=== PATIENT | male | born 1950 | race Caucasian/White ===

== ENCOUNTER 2019-10-29 08:15 | Observation (INO) | payer MEDICARE, SELFPAY ==
[2019-10-29] VITALS (13 sets, daily range): BP systolic 90–116; BP diastolic 45–72; PULSE 58–110; RESP 14–22; TEMP 36.3–36.7; O2SAT 97–99; BMI 28.2
--- NOTE | ~2019-10-29 | CT_ITS ---
EXAMINATION: CT abdomen pelvis w con DATE: 10/29/2019 09:16 INDICATION: Abdominal pain TECHNIQUE: Computed tomography (CT) of the abdomen and pelvis was performed with 100 mL Omnipaque-350 intravenous contrast. Automated exposure control and iterative reconstruction technique were employe d. The dose-length product was 455.42 mGy-cm. COMPARISON: 06/18/2013 FINDINGS: Emphysema. Dependent atelectasis in the right lower lobe. Heart size is normal. Atherosclerotic coron judie artery calcifications with likely coronary artery stenting. No pericardial or pleural effusion. A few scattered hepatic and splenic calcifications consistent with old granulomatous disease. Common b ile duct mildly dilated to 7-8 mm in maximal diameter. No obstructing stones or masses identified. Ga llbladder is normal and there is no intrahepatic biliary ductal dilation. Punctate calcification at t he body of the otherwise normal pancreas which may represent sequela of chronic pancreatitis. Bilater al adrenal glands and left kidney are normal. 8 mm wedge-shaped region of decreased attenuation/enhan cement at the upper pole of the left kidney. Moderate amount of colonic stool. Fatty infiltration of the colonic wall likely related to patient body habitus. Small bowel and appendix are normal. Partial ly decompressed bladder is normal. Small fat-containing left inguinal hernia. No free intraperitoneal gas or fluid. No pathologically enlarged abdominal or pelvic lymphadenopathy. There is calcified ath erosclerosis of the aorta and many of the other arteries. Small intramuscular lipoma at the proximal left rectus femoris muscle. Bones are unremarkable. IMPRESSION: 1. Mild dilation of the common bile duct to 7-8 mm with no obstructing lesion or intrahepatic biliary ductal dilation. Correlate with liver function tests and could consider further evaluation with ultr asound or MRCP. 2. Small fat-containing left inguinal hernia. 3. Nonspecific 8 mm wedge-shaped region of decreased attenuation/enhancement at the upper pole of the left kidney which is likely too small to definitively characterize. Configuration favors scarring re lated to prior infarct or infection over renal cyst or less likely neoplasm. Reviewed, dictated and finalized at location A. ANICAL MAINTENANCE INSTRUCTOR IMPRESSION: 1. Mild dilation of the common bile duct to 7-8 mm with no obstructing lesion o r intrahepatic biliary ductal dilation. Correlate with liver function tests and could consider further evaluation with ultrasound or MRCP. 2. Small fat-containing left inguinal hernia. 3. Nonspecific 8 mm wedge-shaped region of decreased attenuation/enhancement at the upper pole of the left kidney which is likely too small to definitively ch aracterize. Configuration favors scarring related to prior infarct or infection over renal cyst or less likely neoplasm.
--- NOTE | ~2019-10-29 | XR_ITS ---
EXAMINATION: XR chest 1V portable DATE: 10/29/2019 08:45 INDICATION: Chest pain. Hypotension. TECHNIQUE: A single frontal view of the chest was obtained. COMPARISON: Chest 2 views 10/12/2019, chest CT 09/04/2019 FINDINGS: There are lucencies and interstitial opacities in the lungs, consistent with emphysema. Aditya cified left lung nodules and calcified left hilar and mediastinal lymph nodes are consistent with old granulomatous disease. No pleural effusion or pneumothorax. The heart size is normal. IMPRESSION: 1. Emphysema. Reviewed, dictated and finalized at location A. HOME SALES CONSULTANT IMPRESSION: 1. Emphysema.
--- NOTE | ~2019-10-29 | CT_ITS ---
EXAMINATION: CTA chest PE protocol DATE: 10/29/2019 18:52 INDICATION: Shortness of breath, chest and back pain TECHNIQUE: Computed tomography angiography (CTA) of the chest was performed with 100 mL Omnipaque-350 intravenous contrast timed to evaluate the pulmonary arteries. Coronal maximum intensity projection 3D-reconstructions were created by the technologist. The dose-length product (DLP) was 369.04 mGy-cm. Automated exposure control and iterative reconstruction technique were employed. COMPARISON: 09/04/2019 FINDINGS: The pulmonary arteries are well-opacified. No pulmonary embolism is identified. Calcified c oronary artery atherosclerosis is noted. The heart size is normal. There is severe emphysema. There i s mild dependent atelectasis. No pleural effusion or pneumothorax is identified. There is mild thorac ic spondylosis. Contrast from earlier CT examination partially opacifies the urinary tract. Hyperatte nuating material within the gallbladder is most consistent with vicarious excretion of contrast. IMPRESSION: 1. No pulmonary embolism. 2. Mild atelectasis. Reviewed, dictated and finalized at location A. E CATCHER
--- NOTE | 2019-10-29 08:20 | ED.CHESTPAIN ---
HPI - Chest Pain General Chief Complaint: Chest Pain Stated Complaint: CP Time Seen by Provider: 10/29/19 08:20 Source: patient, RN notes reviewed and old records reviewed Mode of arrival: EMS Limitations: no limitations History of Present Illness HPI narrative: Pt is a 69 y/o male with a Hx of ND, who presents to the ED via EMS with c/o substernal chest pain starting roughly 15 minutes ago. He notes that his pain has begun to radiate into his upper back. Pt describes the pain in his chest as a tightness. He currently reports nausea and SOB accompanying his pain. According to the nurse, the pt received 324 mg ASA and 2 mg NTG while in route to the ED. Pt states that he is currently on 2 L of home O2. According to old records, the pt received a cardiac catheterization on 08/17/18 at [facility], which showed no significant coronary artery stenosis. MD complaint: chest pain Onset (ago): minute(s) (15) Pain location: substernal Pain radiation: back (upper back) Quality: tightness Associated symptoms: nausea and dyspnea Treatment prior to arrival: aspirin and nitroglycerin Related Data Home Medications Medication Instructions Recorded Confirmed Nexium 10/29/19 albuterol sulfate 10/29/19 atorvastatin 10/29/19 clopidogrel 10/29/19 diltiazem HCl 10/29/19 magnesium oxide 10/29/19 nitroglycerin mg 10/29/19 rivaroxaban [Xarelto] mg 10/29/19 sotalol 10/29/19 Allergies Allergy/AdvReac Type Severity Reaction Status Date / Time Penicillins Allergy Unknown Unknown Verified 10/29/19 08:59 tetracycline Allergy Unknown Unknown Verified 10/29/19 08:59 Review of Systems Review of Systems: All systems reviewed & are unremarkable except as noted in HPI and below Cardiovascular: Cardiovascular: Reports chest pain (substernal chest pain radiating into upper back) Respiratory: Respiratory: Reports dyspnea Gastrointestinal: Gastrointestinal: Reports nausea PMFSH Past Medical History Medical History Myocardial infarction Surgical History Surgical History Hx of cardiac catheterization on 08/17/18 with no significant coronary artery stenosis Family History Family History (Updated 10/19/18 @ 08:49 by DOCTOR UNKNOWN) Father Family history of cardiovascular disease Family history of lung cancer Mother Family history of chronic obstructive pulmonary disease Family history of aortic aneurysm Social History Social History Smoking status: Former smoker Smoking end date: 09/19/18 Gender identity (if verbalized by the patient): Male Exam Narrative: Exam Narrative: APPEARANCE: No acute distress, nontoxic, resting in bed HEENT: Normocephalic, atraumatic, OMM RESPIRATORY: No respiratory distress, clear to auscultation bilaterally with no rhonchi wheezing or rales CARDIOVASCULAR: RRR s murmur ABDOMINAL: Soft, nondistended, tender palpation epigastric and right upper quadrant left upper quadrant, no tenderness in right lower quadrant left lower quadrant, no rebound or guarding MUSCULOSKELETAl: Moves all extremities. No clubbing, cyanosis or edema. NEURO: Awake and alert. Following commands, speech normal, no focal deficits SKIN:: Warm, dry. Normal Color PSYCHIATRIC: Normal affect/mood Course Course Emergency Course: Reviewed old records including patient with catheterization at [facility] 2018 with no stenosis at that time Patient did receive 3 nitroglycerin as well as took his Cardizem prior to arrival Patient states pain is resolved at this time Discussed with patient and family results of workup and diagnosis. Discussed need for admission. Patient and family understand and agree to current treatment plan Consultations Consultation #1: Discussed case with hospitalist, Dr. García. Accepts admission. Date: 10/29/19 Time: 10:54 Vital Signs Vit
[2019-10-29 08:40] LABS: Basophils Percent Auto 0.3 % (0.2-1.2); Eosinophils Absolute Auto 0.2 K/mm3 (0-0.3); Eosinophils Percent Auto 1.5 % (0-4.4); Hematocrit 36.1 % (42.0-52.0); Hemoglobin 12.1 g/dL (14.0-18.0); Immature Granulocyte Absolute 0.09 K/mm3 (0.00-0.031); Immature Granulocyte Percent A 0.8 % (0-0.5); Lymphocytes Absolute Auto 1.88 K/mm3 (0.9-3.2); Lymphocytes Percent Auto 17.3 % (18.3-44.2); Mean Corpuscular HGB Conc 33.5 g/dl (32-36); Mean Corpuscular Hemoglobin 30.6 pg (26-34); Mean Corpuscular Volume 91.2 fl (80-100); Mean Platelet Volume 9.4 fl (7.4-10.4); Monocytes Percent Auto 8.8 % (2.6-8.5); Neutrophils Absolute Auto 7.8 K/mm3 (1.3-6.7); Neutrophils Percent Auto 71.3 % (45.5-73.1); Platelet Count Result 167 k/mm3 (150-375); Red Blood Count 3.96 M/mm3 (4.6-6.20); Red Cell Distribution Width 14.6 % (11.5-14.5); White Blood Count 10.9 K/mm3 (4.5-10.0)
[2019-10-29] MEDS: LACTATED RINGERS 1,000 ML 999 ML IV CONT ×2 (08:44→10:03)
[2019-10-29 08:50] LABS: INR 1.3; Prothrombin Time 15.9 Seconds (11.1-14.7)
[2019-10-29 08:54] LABS: Alanine Aminotransferase 28 U/L (4-50); Albumin Level 3.4 g/dL (3.5-5.1); Alkaline Phosphatase 56 U/L (38-126); Aspartate Amino Transferase 33 U/L (17-59); Bilirubin,Total 1.2 mg/dL (0.2-1.3); Blood Urea Nitrogen 14 mg/dL (9-20); Calcium 8.1 mg/dL (8.4-10.2); Carbon Dioxide 28 mmol/L (22-30); Chloride 97 mmol/L (98-107); Estimated Glomerular Filt Rate > 60; Glucose 140 mg/dL (75-110); Lipase 81 U/L (23-300); Potassium 4.2 mmol/L (3.4-5.0); Sodium 135 mmol/L (137-145)
[2019-10-29 09:04] LABS: Troponin I < 0.012 ng/mL (0.000-0.034)
--- NOTE | 2019-10-29 10:09 | ECG_ITS ---
Measurements Intervals [place] Rate: 55 P: 71 MT: 125 QRS: 2 QRSD: 82 T: 74 QT: 440 QTc: 423 Interpretive Statements SINUS BRADYCARDIA LOW QRS VOLTAGE IN PRECORDIAL LEADS BORDERLINE T WAVE ABNORMALITY- LATERAL LEADS BASELINE ARTIFACT- I, III, AVR BORDERLINE ECG Electronically Signed On 10-29-2019 12:55:48 WHARF HAND by Song Alston D.O.
[2019-10-29 10:43] LABS: Add Urine Microscopic? YES; Appearance Urine Clear (Clear); Bilirubin Urine Negative (Negative); Blood Urine 1+ (Negative); Color Urine Straw (Yellow); Glucose Urine UA Negative (Negative); Ketones Urine Negative (Negative); Leukocyte Esterase Ur Negative LEU/UL (Negative); Nitrate Urine Negative (Negative); Protein Urine Negative (Negative); Squamous Epithelial Cell Urine Rare /hpf (Few); Urobilinogen Urine Negative mg/dL (<2.0); WBC Urine 0-3 /hpf
[2019-10-29 10:44] LABS: Specific Grav Ur 1.056 (1.001-1.035)
--- NOTE | 2019-10-29 11:53 | ADMGEN ---
This patient, Smith Padilla Jr., was admitted to 3 [facility] Surg Room 309-01. Patient/family oriented to hospital policies and general routines including ID bracelet, bed and alarms, visiting hours, pain management, procedures, bathroom and other care routines, personal items, smoking policy, room service/diet, and visiting hours. Valuables list has been completed. Information on how to activate the Rapid Response Team has been discussed. Patient/Family are encouraged to report perceived risks to care and to ask questions if they do not understand what they are told or what they should do.
[2019-10-29] MEDS: LACTATED RINGERS 1,000 ML 80 ML IV CONT (12:37)
[2019-10-29 14:44] LABS: Troponin I < 0.012 ng/mL (0.000-0.034)
--- NOTE | 2019-10-29 16:43 | PM.IMHP ---
H&P: HPI History of Present Illness Chief complaint: abd pain Narrative: Smith Padilla Jr. is a 69 year old male Review of Systems Review of Systems: All systems reviewed & are unremarkable except as noted in HPI and below PMFSH Past Medical History Medical History (Updated 10/29/19 @ 18:04 by Ata García MD) COPD (chronic obstructive pulmonary disease) Hyperlipidemia Hypertension, essential Myocardial infarction 2009, 2014, 07/2018 Paroxysmal atrial fibrillation Surgical History Surgical History (Updated 10/29/19 @ 18:04 by Ata García MD) Hx of cardiac catheterization on 08/17/18 stents open, also 2009 for stents, and 2014 for stents Stented coronary artery Social History Social History (Updated 10/29/19 @ 17:41 by Ata García MD) Smoking status: Former smoker Smoking end date: 09/19/18 Alcohol intake: never Substance use: never Living arrangements: with family Additional living arrangements comments: Resides with spouse. 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 Gender identity (if verbalized by the patient): Male Meds Home Medications and Allergies Home Medications Medication Instructions Recorded Confirmed Type albuterol sulfate 2.5 mg INHALATION QID 10/29/19 10/29/19 History atorvastatin 40 mg PO DAILY 10/29/19 10/29/19 History clopidogrel 75 mg PO DAILY 10/29/19 10/29/19 History diltiazem HCl 60 mg TID 10/29/19 10/29/19 History magnesium oxide 400 mg PO QAM 10/29/19 10/29/19 History nitroglycerin 0.4 mg SUBLINGUAL DIRECTED PRN 10/29/19 10/29/19 History rivaroxaban [Xarelto] 20 mg PO DAILY 10/29/19 10/29/19 History sotalol 80 mg PO BID 10/29/19 10/29/19 History Allergies Allergy/AdvReac Type Severity Reaction Status Date / Time Penicillins Allergy Unknown Unknown Verified 10/29/19 08:59 tetracycline Allergy Unknown Swelling Verified 10/29/19 11:55 of Lip/Tongue/Throat Amiordarone Allergy Other Uncoded 10/29/19 11:55 Vital Signs Vital Signs - 24 hr 10/29/19 08:17 10/29/19 08:36 10/29/19 08:54 Temperature 97.4 F L Pulse Rate 64 58 L Respiratory Rate 22 H Blood Pressure 90/45 L Pulse Oximetry 97 98 10/29/19 09:39 10/29/19 11:26 10/29/19 11:37 Temperature Pulse Rate 71 65 67 Respiratory Rate 16 16 14 Blood Pressure 102/59 L 112/69 116/72 Pulse Oximetry 99 98 99 10/29/19 11:50 10/29/19 12:50 10/29/19 14:00 Temperature 97.6 F 97.9 F Pulse Rate 68 70 62 Respiratory Rate 18 18 Blood Pressure 112/66 114/67 Pulse Oximetry 99 97 Exam Narrative: Exam Narrative: HEENT: EOMI, PERRL, pharyngeal mucosa pink and intact NECK: No JVD, adenopathy, or thyromegaly CHEST: Coarse BS. Normal effort. HEART: NL S1/S2, regular, no murmur ABDOMEN: BS+, soft, nontender, no mass, no bruits EXTREMITIES: No cyanosis, edema, or clubbing. DP 2+ bilaterally. NEUROLOGIC: CN intact and symmetric to inspection. MUSCULOSKELETAL: Tone and strength symmetric. PSYCH: Alert. Oriented to person, place, and time. H&P: Results Labs Labs: Short CBC 10/29/19 Range/Units 08:33 WBC 10.9 H (4.5-10.0) K/mm3 Hgb 12.1 L (14.0-18.0) g/dL Hct 36.1 L (42.0-52.0) % Plt Count 167 (150-375) k/mm3 BMP 10/29/19 08:33 Sodium 135 L Potassium 4.2 Chloride 97 L Carbon Dioxide 28 BUN 14 Creatinine 0.90 Glucose 140 H Calcium 8.1 L Cardiac Enzymes 10/29/19 10/29/19 Range/Units 08:33 13:33 Troponin I < 0.012 < 0.012 (0.000-0.034) ng/mL Liver Function 10/29/19 Range/Units 08:33 Total Bilirubin 1.2 (0.2-1.3) mg/dL AST 33 (17-59) U/L ALT 28 (4-50) U/L Alkaline Phosphatase 56 (38-126) U/L Albumin 3.4 L (3.5-5.1) g/dL Urine 10/29/19 Range/Units 10:34 Urine Color Straw (Yellow) Urine Appearance Clear (Clear) Urine pH 7.0 (5.0-9.0) Ur Specific Perry 1.056 H (1.001-1.035) Urine Protein
[2019-10-29 17:42] LABS: Troponin I < 0.012 ng/mL (0.000-0.034)
[2019-10-29] MEDS: DILTIAZEM HCL 60 MG TABLET BY MOUTH (21:24)
[2019-10-29] MEDS: SOTALOL HCL 80 MG TABLET PO (21:24)
[2019-10-29] MEDS: RIVAROXABAN 20 MG TABLET PO (21:32)
[2019-10-29] MEDS: PANTOPRAZOLE 40 MG TABLET PO (21:33)
--- NOTE | 2019-10-29 22:40 | PCRCNOTE ---
Window of time for administration has passed. See next scheduled administration.
[2019-10-30] VITALS (9 sets, daily range): BP systolic 112; BP diastolic 77; PULSE 60–99; RESP 16–20; TEMP 36.6; O2SAT 97–100
[2019-10-30] MEDS: LACTATED RINGERS 1,000 ML 80 ML IV CONT (01:12)
[2019-10-30] MEDS: ALBUTEROL SULFATE NEB 2.5 MG/3 ML INH INHALATION ×2 (01:44→08:55)
[2019-10-30] MEDS: DILTIAZEM HCL 60 MG TABLET BY MOUTH (05:44)
[2019-10-30 06:36] LABS: Basophils Percent Auto 0.2 % (0.2-1.2); Eosinophils Absolute Auto 0.2 K/mm3 (0-0.3); Eosinophils Percent Auto 2.9 % (0-4.4); Hematocrit 36.5 % (42.0-52.0); Hemoglobin 11.8 g/dL (14.0-18.0); Immature Granulocyte Absolute 0.02 K/mm3 (0.00-0.031); Immature Granulocyte Percent A 0.4 % (0-0.5); Lymphocytes Absolute Auto 1.07 K/mm3 (0.9-3.2); Lymphocytes Percent Auto 19.2 % (18.3-44.2); Mean Corpuscular HGB Conc 32.3 g/dl (32-36); Mean Corpuscular Hemoglobin 29.8 pg (26-34); Mean Corpuscular Volume 92.2 fl (80-100); Mean Platelet Volume 9.4 fl (7.4-10.4); Monocytes Absolute Auto 0.6 K/mm3 (0.1-0.6); Monocytes Percent Auto 10.4 % (2.6-8.5); Neutrophils Absolute Auto 3.7 K/mm3 (1.3-6.7); Neutrophils Percent Auto 66.9 % (45.5-73.1); Platelet Count Result 131 k/mm3 (150-375); Red Blood Count 3.96 M/mm3 (4.6-6.20); Red Cell Distribution Width 14.9 % (11.5-14.5); White Blood Count 5.6 K/mm3 (4.5-10.0)
[2019-10-30 06:55] LABS: Alanine Aminotransferase 90 U/L (4-50); Albumin Level 3.3 g/dL (3.5-5.1); Alkaline Phosphatase 66 U/L (38-126); Aspartate Amino Transferase 53 U/L (17-59); Bilirubin,Total 0.6 mg/dL (0.2-1.3); Blood Urea Nitrogen 8 mg/dL (9-20); Calcium 8.4 mg/dL (8.4-10.2); Carbon Dioxide 31 mmol/L (22-30); Chloride 101 mmol/L (98-107); Estimated CRCL calculation 61 ml/min; Estimated Glomerular Filt Rate > 60; Glucose 99 mg/dL (75-110); Potassium 4.4 mmol/L (3.4-5.0); Sodium 138 mmol/L (137-145)
--- NOTE | 2019-10-30 08:33 | ECG_ITS ---
Measurements Intervals [place] Rate: 62 P: 64 UT: 130 QRS: 56 QRSD: 82 T: 81 QT: 408 QTc: 415 Interpretive Statements SINUS RHYTHM BORDERLINE ST-T WAVE ABNORMALITY- LATERAL LEADS BASELINE ARTIFACT- I, AVR, AVL, AVF BORDERLINE ECG Electronically Signed On 10-30-2019 10:21:12 FOAM GUN OPERATOR by Song Alston D.O.
[2019-10-30] MEDS: ATORVASTATIN 40 MG TABLET PO (09:21)
[2019-10-30] MEDS: CLOPIDOGREL BISULFATE 75 MG TABLET PO (09:21)
[2019-10-30] MEDS: PANTOPRAZOLE 40 MG TABLET PO (09:21)
[2019-10-30] MEDS: MAGNESIUM OXIDE 400 MG TABLET PO (09:21)
--- NOTE | 2019-10-30 16:57 | PCRCNOTE ---
Pt. D/C prior to home o2 eval
--- NOTE | 2019-11-02 16:42 | P.DS_ITS ---
DS: Diagnosis Admitting Diagnosis Admitting Diagnosis: Chest pain, unspecified Discharge Diagnosis (1) Chest pain: Qualifiers: Chest pain type: unspecified Qualified Code(s): R07.9 - Chest pain, unspecified Code(s): R07.9 - Chest pain, unspecified Status: Acute Assessment and Plan: * Pain was clearly different than his angina and is EKG and troponin levels are unremarkable * Vascular risk cause such as aortic dissection is of concern * GI cause such as esophageal spasm or reflux is a possibility * Peptic ulcer disease seems much less likely * Given his slightly dilated common bile duct he certainly might have passed a gallstone * Pulmonary embolus seems unlikely given his anticoagulation * Muscular skeletal pain would be unlikely to produce the visceral response with shortness of breath and sweats * CTA chest * Empiric pantoprazole * Observe overnight on telemetry (2) Hypertension, essential: Code(s): I10 - Essential (primary) hypertension Status: Acute Assessment and Plan: * Continue diltiazem (3) COPD (chronic obstructive pulmonary disease): Qualifiers: COPD type: unspecified COPD Qualified Code(s): J44.9 - Chronic obstructive pulmonary disease, unspecified Code(s): J44.9 - Chronic obstructive pulmonary disease, unspecified Status: Acute Assessment and Plan: * Continue home regimen * Wean oxygen as possible (4) Paroxysmal atrial fibrillation: Code(s): I48.0 - Paroxysmal atrial fibrillation Status: Acute Assessment and Plan: * Continue diltiazem and rivaroxaban (5) Anemia, unspecified: Qualifiers: Anemia type: unspecified type Qualified Code(s): D64.9 - Anemia, unspecified Code(s): D64.9 - Anemia, unspecified Status: Acute Assessment and Plan: * Check stool for blood as he is anticoagulated * Check iron, B12, folate DS: Summary Time Spent with Patient Time attestation: Total time spent providing and/or coordinating discharge services: Discharge Plan Discharge Attending physician on discharge: Adam Pang Consulting providers: Trung Matthews ; Pramod Holcomb ; Song Alston ; Robert Ty V. Discharging Clinician: Adam Pang Patient Disposition: Home, Self-Care Activity: as tolerated Diet: low sodium and low cholesterol Patient Instructions: Using Oxygen at Home (DC), COPD (Chronic Obstructive Pulmonary Disease) (DC) Stand Alone Forms: General Discharge Information Follow-up/Referrals: UNKNOWN,DOCTOR [Non-Staff] - (see stonemason apprentice) Discharge Medications: Continued atorvastatin 40 mg tablet 40 mg PO DAILY RF: 0 albuterol sulfate 2.5 mg /3 mL (0.083 %) solution for nebulization 2.5 mg inhalation QID RF: 0 sotalol 80 mg tablet 80 mg PO BID RF: 0 clopidogrel 75 mg tablet 75 mg PO DAILY RF: 0 magnesium oxide 400 mg (241.3 mg magnesium) tablet 400 mg PO QAM RF: 0 nitroglycerin 0.4 mg tablet, sublingual 0.4 mg sublingual DIRECTED PRN (Reason: Chest Pain) RF: 0 diltiazem HCl 60 mg tablet 60 mg TID RF: 0 Xarelto 20 mg tablet 20 mg PO DAILY RF: 0 Date of admission: 10/29/19 10:59 Primary Care Provider: Luis Fernando Admitting Provider: Ata García Discharge Date/Time: 10/30/19 11:45 Attending physician on admission: Adam Pang Condition: Stable
--- NOTE | 2019-11-02 16:44 | PM.DS ---
DS: Diagnosis Admitting Diagnosis Admitting Diagnosis: Chest pain, unspecified Discharge Diagnosis (1) Chest pain: Qualifiers: Chest pain type: unspecified Qualified Code(s): R07.9 - Chest pain, unspecified Code(s): R07.9 - Chest pain, unspecified Status: Acute Assessment and Plan: Pain was clearly different than his angina and is EKG and troponin levels x2 are unremarkable GI cause such as esophageal spasm or reflux is a possibility Peptic ulcer disease seems much less likely Given his slightly dilated common bile duct he certainly might have passed a gallstone CTA chest no pulmonary emboli Empiric pantoprazole Observed overnight on telemetry and pain subsided. Will follow-up with his home delivery driver within the next 2-3 days (2) Hypertension, essential: Code(s): I10 - Essential (primary) hypertension Status: Acute Assessment and Plan: Continue diltiazem blood pressure well controlled (3) COPD (chronic obstructive pulmonary disease): Qualifiers: COPD type: unspecified COPD Qualified Code(s): J44.9 - Chronic obstructive pulmonary disease, unspecified Code(s): J44.9 - Chronic obstructive pulmonary disease, unspecified Status: Acute Assessment and Plan: Continue home regimen with home O2 (4) Paroxysmal atrial fibrillation: Code(s): I48.0 - Paroxysmal atrial fibrillation Status: Acute Assessment and Plan: Continue diltiazem and rivaroxaban, sinus rhythm while here we continue the sotalol and patient felt this was causing most of his symptomatology. Encouraging to follow-up with his home delivery driver DS: Summary Hospital Course Hospital Course: 69-year-old white male with history of coronary disease and paroxysmal atrial fibrillation admitted with lower chest and upper abdominal pain that he thought was different from usual angina. Serial enzymes were negative and LFTs remain normal. He was discharged to follow-up with his home delivery driver within the next 2-3 days. CTA revealed no pulmonary emboli Time Spent with Patient Time attestation: Total time spent providing and/or coordinating discharge services: 35 minutes Exam Narrative: Exam Narrative: Condition on discharge Blood pressure 112/76 pulse 72 and regular afebrile Lungs clear CV regular rate rhythm Abdomen is soft nontender Extremities without edema Discharge Plan Discharge Attending physician on discharge: Adam Pang Consulting providers: Trung Matthews ; Pramod Holcomb ; Song Alston ; Robert Ty V. Discharging Clinician: Adam Pang Patient Disposition: Home, Self-Care Activity: as tolerated Diet: low sodium and low cholesterol Patient Instructions: Using Oxygen at Home (DC), COPD (Chronic Obstructive Pulmonary Disease) (DC) Stand Alone Forms: General Discharge Information Follow-up/Referrals: UNKNOWN,DOCTOR [Non-Staff] - (see home delivery driver) Discharge Medications: Continued atorvastatin 40 mg tablet 40 mg PO DAILY RF: 0 albuterol sulfate 2.5 mg /3 mL (0.083 %) solution for nebulization 2.5 mg inhalation QID RF: 0 sotalol 80 mg tablet 80 mg PO BID RF: 0 clopidogrel 75 mg tablet 75 mg PO DAILY RF: 0 magnesium oxide 400 mg (241.3 mg magnesium) tablet 400 mg PO QAM RF: 0 nitroglycerin 0.4 mg tablet, sublingual 0.4 mg sublingual DIRECTED PRN (Reason: Chest Pain) RF: 0 diltiazem HCl 60 mg tablet 60 mg TID RF: 0 Xarelto 20 mg tablet 20 mg PO DAILY RF: 0 Date of admission: 10/29/19 10:59 Primary Care Provider: Luis Fernando Admitting Provider: Ata García Discharge Date/Time: 10/30/19 11:45 Attending physician on admission: Adam Pang Condition: Stable
== END 2019-10-30 11:45 | disposition home or self-care (01) ==
LOC: ANHED 11:04 → ANH3MEDSUR 11:36
PROVIDERS: Admitting Provider Internal Medicine; Emergency Provider Emergency Medicine; PCP Family Medicine Adolescent Medicine; Visit Provider Internal Medicine
DX: R07.9 Chest pain, unspecified (principal); R10.13 Epigastric pain; I10 Essential (primary) hypertension; J44.9 Chronic obstructive pulmonary disease, unspecified; I48.0 Paroxysmal atrial fibrillation; I25.10 Atherosclerotic heart disease of native coronary artery without angina pectoris; I25.2 Old myocardial infarction; E78.5 Hyperlipidemia, unspecified; D64.9 Anemia, unspecified; Z87.891 Personal history of nicotine dependence; Z95.5 Presence of coronary angioplasty implant and graft
CPT/HCPCS: 36415; 71045; 71275; 74177; 80053; 81001; 83690; 84484; 85025; 85610; 85730; 93005; 94640; 96361; 96374; 99285; A9270; G0378; J0131; J7120; Q9967

== ENCOUNTER 2022-11-30 14:38 | Inpatient (IN) | payer MEDICARE, SELFPAY ==
[2022-11-30] VITALS (20 sets, daily range): BP systolic 124–155; BP diastolic 76–88; PULSE 74–105; RESP 12–18; TEMP 36.6–36.7; O2SAT 92–100; BMI 29.7
--- NOTE | ~2022-11-30 | XR_ITS ---
EXAMINATION: XR chest 2V DATE: 11/30/2022 14:51 INDICATION: Chest pain and shortness of breath. TECHNIQUE: Frontal and lateral views of the chest were obtained. COMPARISON: Chest one view 10/29/2019, chest CT 10/29/2019 FINDINGS: The lungs are hyperexpanded with lucencies, consistent with emphysema. A calcified left linnette g nodule and calcified mediastinal lymph nodes are consistent with old granulomatous disease. There i s mild atelectasis at the lung bases. No pleural effusion or pneumothorax. The heart size is normal. IMPRESSION: 1. Emphysema. 2. Mild atelectasis at the lung bases. Reviewed, dictated and finalized at location A.
--- NOTE | 2022-11-30 14:40 | ECG_ITS ---
Measurements Intervals [place] Rate: 97 P: 81 UT: 124 QRS: 59 QRSD: 90 T: 91 QT: 343 QTc: 437 Interpretive Statements SINUS RHYTHM ATRIAL PREMATURE COMPLEX NONSPECIFIC ST & T-WAVE ABNORMALITY- DIFFUSE LEADS BASELINE ARTIFACT- I, II, III, AVR, AVL, AVF, V4-V6 BORDERLINE ECG COMPARED TO ECG 10/30/2019 09:56:03 NO SIGNIFICANT CHANGES Electronically Signed On 11-30-2022 21:43:30 CDT by Song Alston D.O.
[2022-11-30 15:17] LABS: Basophils Percent Auto 0.2 % (0.2-1.2); Eosinophils Absolute Auto 0.1 K/mm3 (0-0.3); Eosinophils Percent Auto 0.5 % (0-4.4); Hematocrit 37.1 % (42.0-52.0); Hemoglobin 11.6 g/dL (14.0-18.0); Immature Granulocyte Absolute 0.26 K/mm3 (0.00-0.031); Immature Granulocyte Percent A 1.5 % (0-0.5); Lymphocytes Absolute Auto 2.38 K/mm3 (0.9-3.2); Lymphocytes Percent Auto 13.5 % (18.3-44.2); Mean Corpuscular HGB Conc 31.3 g/dl (32-36); Mean Corpuscular Hemoglobin 23.2 pg (26-34); Mean Corpuscular Volume 74.1 fl (80-100); Mean Platelet Volume 9.4 fl (7.4-10.4); Monocytes Absolute Auto 1.1 K/mm3 (0.1-0.6); Monocytes Percent Auto 6.3 % (2.6-8.5); Neutrophils Absolute Auto 13.7 K/mm3 (1.3-6.7); Platelet Count Result 298 k/mm3 (150-375); Red Blood Count 5.01 M/mm3 (4.6-6.20); Red Cell Distribution Width 17.2 % (11.5-14.5); White Blood Count 17.6 K/mm3 (4.5-10.0)
[2022-11-30 15:25] LABS: Alanine Aminotransferase 24 U/L (6-50); Albumin Level 4.6 g/dL (3.5-5.1); Alkaline Phosphatase 85 U/L (38-126); Anion Gap 10 mmol/L (8-16); Anisocytosis 1+ (NORMAL); Aspartate Amino Transferase 24 U/L (17-59); Bilirubin,Total 1.5 mg/dL (0.2-1.3); Blood Urea Nitrogen 15 mg/dL (9-20); Calcium 8.6 mg/dL (8.4-10.2); Carbon Dioxide 24 mmol/L (22-30); Chloride 97 mmol/L (98-107); Estimated CRCL calculation 43 ml/min; Estimated Glomerular Filt Rate 60; Glucose 122 mg/dL (65-110); INR 3.4; Lipase 38 U/L (23-300); Ovalocytes 1+ (NORMAL); Platelet Estimate Adequate (Adequate); Potassium 3.8 mmol/L (3.4-5.0); Prothrombin Time 33.1 Seconds (11.1-14.7); Schistocytes None Seen (NORMAL); Sodium 131 mmol/L (137-145)
[2022-11-30 15:26] LABS: Partial Thromboplastin Time 57.2 SECONDS (22.3-36.8)
[2022-11-30 15:35] LABS: Troponin I < 0.012 ng/mL (0.000-0.034)
[2022-11-30 19:07] LABS: Troponin I < 0.012 ng/mL (0.000-0.034)
--- NOTE | 2022-11-30 20:19 | ED.CHESTPAIN ---
HPI - Chest Pain General Chief Complaint: Chest Pain Stated Complaint: chest pain x several days Time Seen by Provider: 11/30/22 19:45 History of Present Illness HPI narrative: Patient is a 72-year-old male with a history of COPD, A-fib on anticoagulation, CAD, hypertension presenting with chest pain. Patient states that for the last several days he has had worsening chest tightness. States that he has also had a very productive cough. States he has been coughing up brown stuff. States that he does feel more short of breath than normal. States he uses oxygen as needed at home. He denies headache, numbness or weakness, lightheadedness, abdominal pain, nausea or vomiting, diarrhea, leg swelling. Related Data Home Medications Medication Instructions Recorded Confirmed atorvastatin 40 mg tablet 40 mg PO DAILY 10/25/19 12/01/22 clopidogrel 75 mg tablet 75 mg PO DAILY 10/29/19 12/01/22 diltiazem HCl 60 mg tablet 60 mg PO Q8H 10/29/19 12/01/22 magnesium oxide 400 mg (241.3 mg 400 mg PO QHS 10/29/19 12/01/22 magnesium) tablet nitroglycerin 0.4 mg sublingual 0.4 mg sublingual DIRECTED PRN 10/29/19 12/01/22 tablet Chest Pain rivaroxaban 20 mg tablet (Xarelto) 20 mg PO DAILY 10/29/19 12/01/22 esomeprazole magnesium 20 mg 20 mg PO DAILY 12/01/22 12/01/22 capsule,delayed release (Nexium) furosemide 20 mg PO Q12H 12/01/22 12/01/22 Allergies Allergy/AdvReac Type Severity Reaction Status Date / Time NSAIDS (Non-Steroidal Allergy Severe SWELLING Verified 11/30/22 14:38 Anti-Inflamma OF TONGUE,ANAPHALACTIC REACTION Penicillins Allergy Unknown Unknown Verified 11/30/22 14:38 tetracycline Allergy Unknown Swelling Verified 11/30/22 14:38 of Lip/Tongue/Throat amiodarone Allergy Verified 12/01/22 09:32 Review of Systems Review of Systems: All systems reviewed & are unremarkable except as noted in HPI and below PMFSH Past Medical History Medical History COPD (chronic obstructive pulmonary disease) History of heart attack Hyperlipidemia Hypertension, essential Myocardial infarction 2009, 2014, 07/2018 Paroxysmal atrial fibrillation Surgical History Surgical History Hx of cardiac catheterization on 08/17/18 stents open, also 2009 for stents, and 2014 for stents Stented coronary artery Family History Family History Father Family history of cardiovascular disease Family history of lung cancer Mother Family history of chronic obstructive pulmonary disease Family history of aortic aneurysm Social History Social History Smoking status: Former smoker Smoking end date: 09/19/18 Alcohol intake: never Substance use: never Lack of Transportation: No Lack of Food: Never True Current Housing: I Have Housing Concerned About Future Housing: No Difficulty Paying Gas/Electric Bills: No Difficulty Paying for Meds: No Currently Unemployed: No Education: High School Diploma/GED Difficulty w/ Childcare or Family Care: No Living arrangements: with family Additional living arrangements comments: Resides with spouse. 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 EYES: PERRLA and EOMI. ENT: Nares clear, no rhinorrhea or epistaxis. Mucous membranes moist. NECK: Supple. CHEST: Breath sounds diminished bilaterally with significant wheezing HEART: Regular rate and rhythm. No murmur heard ABDOMEN: Soft, nontender, nondistended EXTREMITIES: Normal range of motion. No edema. SK
[2022-11-30] MEDS: methylPREDNISolone SOD SUCC 125 MG VIAL IV PUSH (20:37)
[2022-11-30 21:15] LABS: NT Pro B Type Natriuretic Pept 95 pg/mL (19.9-100)
[2022-11-30 21:28] LABS: Influenza A QL RT-PCR Negative (Negative); Influenza B QL RT-PCR Negative (Negative); RSV RNA, RT-PCR Negative (Negative); SARS-CoV-2 RNA PCR Negative
[2022-11-30 21:39] LABS: Troponin I < 0.012 ng/mL (0.000-0.034)
[2022-11-30] MEDS: ALBUTEROL SULFATE NEB 2.5 MG/3 ML INH 5 MG INHALATION (21:40)
[2022-11-30] MEDS: IPRATROPIUM BR 0.02% INH SOLN 0.5 MG/2.5 ML VIAL INHALATION (21:40)
--- NOTE | 2022-11-30 21:51 | PM.IMHP ---
H&P: HPI History of Present Illness Date/Time: 11/30/22 21:51 Chief Complaint: Shortness of breath Narrative: This is a 72-year-old male with past medical history significant for COPD/emphysema, atrial fibrillation, rate controlled and anticoagulated, coronary artery disease, tobacco dependence, hypertension, dyslipidemia. Patient presents to the emergency room after having 3 days of shortness of breath, chills, fevers, cough productive of yellowish to [place] sputum copious amount, night sweats, muscle aches, patient is usually on supplemental oxygen by nasal cannula 2-3 L at home. Preliminary workup was significant for patient tested negative for influenza type A, influenza type B, RSV and COVID-19 a chest x-ray was reported as: IMPRESSION: 1. Emphysema. 2. Mild atelectasis at the lung bases. Review of Systems Review of Systems: Shortness of breath, cough productive of yellow to valencia sputum, muscle aches and pains, generalized malaise, night sweats, chills. Constitutional: Constitutional: Reports body ache(s), Reports chills, Reports fatigue, Reports fever(s), Reports lethargy, Reports malaise, Reports night sweats and Reports weakness Eyes: Eyes: Denies change in vision ENT: Denies dysphagia, Denies nasal congestion, Denies nasal discharge, Denies nasal obstruction and Denies odynophagia Cardiovascular: Cardiovascular: Denies chest pain, Denies leg edema, Denies radiating jaw, neck or arm pain and Denies palpitations Respiratory: Respiratory: Reports change in phlegm color, Reports chest congestion, Reports cough, Reports excessive phlegm production, Reports dyspnea, Reports dyspnea on exertion and Reports wheezing Gastrointestinal: Gastrointestinal: Denies abdominal pain, Denies dyspepsia, Denies heartburn, Denies diarrhea, Denies nausea and Denies vomiting Genitourinary: Genitourinary: Denies dysuria Musculoskeletal: Musculoskeletal: Reports myalgias Integumentary/Breasts: Skin/Breast: Denies rash Neurologic: Denies focal weakness and Denies Sensory deficit (Neuro) Psychiatric: Psychiatric: Reports no additional psychiatric complaints and Reports as per HPI Endocrine: Endocrine: Denies cold intolerance, Denies flushing, Denies heat intolerance, Denies polyphagia, Denies polydipsia and Denies palpitations Hematologic/Lymphatic: Hematologic/Lymphatic: Reports no additional hematologic/lymphatic complaints and Reports as per HPI Allergic/Immunologic: Allergic/Immunologic: Reports no additional allergic/immunologic complaints and Reports as per HPI [facility] Past Medical History Medical History (Updated 12/01/22 @ 02:24 by Luci Nicholson MD) COPD (chronic obstructive pulmonary disease) History of heart attack Hyperlipidemia Hypertension, essential Myocardial infarction 2009, 2014, 07/2018 Paroxysmal atrial fibrillation Surgical History Surgical History (System 11/06/19 @ 08:38 by Juhi Knowles) Hx of cardiac catheterization on 08/17/18 stents open, also 2009 for stents, and 2014 for stents Stented coronary artery Family History Family History (System 11/06/19 @ 08:38 by Juhi Knowles) Father Family history of cardiovascular disease Family history of lung cancer Mother Family history of chronic obstructive pulmonary disease Family history of aortic aneurysm Social History Social History (System 11/06/19 @ 08:38 by Juhi Knowles) Smoking status: Former smoker Smoking end date: 09/19/18 Alcohol intake: never Substance use: never Lack of Transportation: No Lack of Food: Never True Current Housing: I Have Housing Concerned About Future Housing: No Difficulty Paying Gas/Electric Bills: No Difficulty Paying for Meds: No Currently Unemployed: No Education: High School Diploma/GED Difficulty w/ Childcare or Family Care: No Living arrangements: with family Additional living arrangements comments: Resides with spouse. Occupation/Education: retir
--- NOTE | 2022-11-30 23:26 | ADMGEN ---
This patient, Smith Padilla Jr., was admitted to 3 [facility] Surg Room 316-02. Patient/family oriented to hospital policies and general routines including ID bracelet, bed and alarms, visiting hours, pain management, procedures, bathroom and other care routines, personal items, smoking policy, room service/diet, and visiting hours. Information on how to activate the Rapid Response Team has been discussed. Patient/Family are encouraged to report perceived risks to care and to ask questions if they do not understand what they are told or what they should do.
[2022-12-01] VITALS (16 sets, daily range): BP systolic 133–146; BP diastolic 68–78; PULSE 80–110; RESP 15–20; TEMP 36.1–36.7; O2SAT 91–97; BMI 29.7
[2022-12-01] MEDS: cefTRIAXone 2 GM/NS 100 ML 2 GM/100 ML BAG IVPB ×2 (02:28→21:40)
[2022-12-01] MEDS: dilTIAZem HCL 60 MG TABLET BY MOUTH ×3 (05:21→21:28)
--- NOTE | 2022-12-01 06:32 | PCRCNOTE ---
Window of time for administration has passed. See next scheduled administration.
[2022-12-01] MEDS: ALBUTEROL SULFATE NEB 2.5 MG/3 ML INH INHALATION (08:46)
[2022-12-01] MEDS: IPRATROPIUM BR 0.02% INH SOLN 0.5 MG/2.5 ML VIAL INHALATION ×4 (08:46→20:00)
[2022-12-01] MEDS: ATORVASTATIN 40 MG TABLET PO (09:23)
[2022-12-01] MEDS: CLOPIDOGREL BISULFATE 75 MG TABLET PO (09:23)
[2022-12-01] MEDS: RIVAROXABAN 20 MG TABLET PO (10:30)
--- NOTE | 2022-12-01 11:11 | PM.IMPN ---
Progress Note: A&P Assessment and Plan (1) COPD exacerbation: Code(s): J44.1 - Chronic obstructive pulmonary disease with (acute) exacerbation Status: Acute Assessment and Plan: C/o SOB, increased sputum with color change and chills. Breathing treatments q.4 hours. Albuterol changed to xopenex Q4 hours due to h/o afib Continue empiric antibiotics- Azithromcyin 500 mg IV Q24 hours and IV Rocephin 1 gram Q24 Mucinex 600 mg BID Solu-medrol 40 mg IV Q4 hours Supportive care Resume trelegy when ready for discharge. (2) Chronic respiratory failure with hypoxia: Code(s): J96.11 - Chronic respiratory failure with hypoxia Status: Chronic Assessment and Plan: Continue supplemental oxygen by nasal cannula Try and keep oxygen saturation at 94% Titrate O2 as needed. He reports wearing 2-3L with activity and sleep. He does not usually wear O2 at rest. (3) Paroxysmal atrial fibrillation: Code(s): I48.0 - Paroxysmal atrial fibrillation Status: Chronic Assessment and Plan: Chronic, continue diltiazem and anticoagulation (4) Coronary artery disease: Qualifiers: Coronary Disease-Associated Artery/Lesion type: [place] artery [place] vs. transplanted heart: [place] heart Associated angina: without angina Qualified Code(s): I25.10 - Atherosclerotic heart disease of [place] coronary artery without angina pectoris Code(s): I25.10 - Atherosclerotic heart disease of [place] coronary artery without angina pectoris Status: Chronic Assessment and Plan: Chest pain-free. h/o cardiac stents. Continue plavix and statin. (5) Tobacco abuse: Code(s): Z72.0 - Tobacco use Status: Chronic Assessment and Plan: Nicotine patches as needed (6) Hypertension, essential: Code(s): I10 - Essential (primary) hypertension Status: Chronic Assessment and Plan: Continue home meds and adjust as needed. Plan CODE STATUS: Full code Disposition: from home. Diet: Heart healthy Antibiotic: day 1 Time Spent With Patient Time with patient: 15 - 25 minutes Subjective Date/time seen: 12/01/22 11:11 He feels like is breathing is improving, however, he is still short of breath with exertion. He is coughing up thick yellow/brown sputum. No fevers, chills, chest pain or palpitations. Review of Systems Review of Systems: All systems reviewed & are unremarkable except as noted in HPI and below Exam Narrative: General:?nontoxic-appearing, dangling, in no distress. HEENT:??Normocephalic. Pupils equal and round. Sclera anicteric.? Oral mucosa moist.? Neck:??No JVD Respiratory:?Respirations are nonlabored. Lung sounds diminished throughout, expiratory wheezing?in all moore. Cardiovascular:?normal S1-S2 regular rate and rhythm without murmurs, gallops or rubs. Gastrointestinal:??Abdomen is soft , protuberant and nondistended with positive bowel sounds. No guarding. Skin:??Warm and dry.? Fair complexion. Extremities:??No cyanosis, clubbing, or edema. Grossly normal ROM. Neurological:??Alert and oriented x3. No gross focal deficits. Psychiatric:??Pleasant and cooperative with normal mood and affect. Objective Data Vital Signs Vital Signs: Vital Signs - 24 hr 11/30/22 14:45 11/30/22 18:55 11/30/22 18:57 Temperature 97.8 F 98.1 F Pulse Rate 96 88 83 Respiratory Rate 12 18 Blood Pressure 124/85 155/76 H Pulse Oximetry 97 97 Oxygen Delivery Nasal Cannula Oxygen Flow Rate 2 Fraction of Inspired Oxygen 11/30/22 21:42 11/30/22 19:02 11/30/22 19:18 Temperature Pulse Rate 74 90 Respiratory Rate 13 16 Blood Pressure Pulse Oximetry 100 96 98 Oxygen Delivery Nasal Cannula Oxygen Flow Rate 2.0 Fraction of Inspired Oxygen 11/30/22 19:32 11/30/22 19:49 11/30/22 20:00 Temperature Pulse Rate 80 78 79 Respiratory Rate 15 15 17 Blood Pressure Pulse Oximetry 99 97 98 Oxygen Delivery Oxyge
[2022-12-01] MEDS: FLUTICASONE/UMECLIDIN/VILANTER 100-62.5-25 MCG ELLIPTA 1 PUFF INHALATION (12:22)
[2022-12-01] MEDS: guaiFENesin 12 HR 600 MG TABCR PO (21:27)
[2022-12-01] MEDS: methylPREDNISolone SOD SUCC 40 MG VIAL IV PUSH (21:28)
[2022-12-01] MEDS: MAGNESIUM OXIDE 400 MG TABLET PO (21:28)
[2022-12-02] VITALS (21 sets, daily range): BP systolic 109–136; BP diastolic 64–79; PULSE 67–106; RESP 16–20; TEMP 36.2–37.2; O2SAT 93–98
[2022-12-02] MEDS: IPRATROPIUM BR 0.02% INH SOLN 0.5 MG/2.5 ML VIAL INHALATION ×6 (00:20→23:50)
[2022-12-02] MEDS: methylPREDNISolone SOD SUCC 40 MG VIAL IV PUSH ×2 (05:39→21:14)
[2022-12-02] MEDS: dilTIAZem HCL 60 MG TABLET BY MOUTH ×3 (05:39→21:15)
[2022-12-02 07:23] LABS: Hematocrit 34.8 % (42.0-52.0); Hemoglobin 10.5 g/dL (14.0-18.0); Mean Corpuscular HGB Conc 30.2 g/dl (32-36); Mean Corpuscular Hemoglobin 23.3 pg (26-34); Mean Corpuscular Volume 77.2 fl (80-100); Mean Platelet Volume 9.8 fl (7.4-10.4); Platelet Count Result 325 k/mm3 (150-375); Red Blood Count 4.51 M/mm3 (4.6-6.20); Red Cell Distribution Width 17.1 % (11.5-14.5); White Blood Count 15.7 K/mm3 (4.5-10.0)
[2022-12-02 07:50] LABS: Anion Gap 8 mmol/L (8-16); Blood Urea Nitrogen 17 mg/dL (9-20); CRP 6.1 mg/dL (<1.0); Calcium 8.7 mg/dL (8.4-10.2); Carbon Dioxide 26 mmol/L (22-30); Chloride 101 mmol/L (98-107); Estimated CRCL calculation 66 ml/min; Estimated Glomerular Filt Rate > 60; Glucose 207 mg/dL (65-110); Potassium 4.3 mmol/L (3.4-5.0); Sodium 135 mmol/L (137-145)
[2022-12-02 08:03] LABS: Procalcitonin 0.1 ng/mL
[2022-12-02] MEDS: PANTOPRAZOLE 40 MG TABLET PO (08:03)
[2022-12-02] MEDS: guaiFENesin 12 HR 600 MG TABCR PO ×2 (08:03→21:14)
[2022-12-02] MEDS: RIVAROXABAN 20 MG TABLET PO (08:03)
[2022-12-02] MEDS: ATORVASTATIN 40 MG TABLET PO (08:03)
[2022-12-02] MEDS: CLOPIDOGREL BISULFATE 75 MG TABLET PO (08:03)
[2022-12-02] MEDS: FLUTICASONE/UMECLIDIN/VILANTER 100-62.5-25 MCG ELLIPTA 1 PUFF INHALATION (08:32)
--- NOTE | 2022-12-02 11:24 | PCCCNOTE ---
On 12/02/22, the student, [Tran Shah], provided care and completed [facility] documentation on this patient. I have reviewed the student's documentation and agree with the findings.
--- NOTE | 2022-12-02 16:24 | PM.IMPN ---
Progress Note: A&P Assessment and Plan (1) COPD exacerbation: Code(s): J44.1 - Chronic obstructive pulmonary disease with (acute) exacerbation Status: Acute Assessment and Plan: C/o SOB, increased sputum with color change and chills. Breathing treatments q.4 hours. Albuterol changed to xopenex Q4 hours due to h/o afib Continue empiric antibiotics- Azithromcyin 500 mg IV Q24 hours and IV Rocephin 1 gram Q24 Mucinex 600 mg BID Solu-medrol 40 mg IV decelerated to q.12 hours Plan for home O2 evaluation tomorrow. Supportive care Resume trelegy when ready for discharge. (2) Chronic respiratory failure with hypoxia: Code(s): J96.11 - Chronic respiratory failure with hypoxia Status: Chronic Assessment and Plan: Continue supplemental oxygen by nasal cannula Try and keep oxygen saturation at 94% Titrate O2 as needed. He reports wearing 2-3L with activity and sleep. He does not usually wear O2 at rest. (3) Paroxysmal atrial fibrillation: Code(s): I48.0 - Paroxysmal atrial fibrillation Status: Chronic Assessment and Plan: Chronic, continue diltiazem and anticoagulation (4) Coronary artery disease: Qualifiers: Coronary Disease-Associated Artery/Lesion type: [place] artery [place] vs. transplanted heart: [place] heart Associated angina: without angina Qualified Code(s): I25.10 - Atherosclerotic heart disease of [place] coronary artery without angina pectoris Code(s): I25.10 - Atherosclerotic heart disease of [place] coronary artery without angina pectoris Status: Chronic Assessment and Plan: Chest pain-free. h/o cardiac stents. Continue plavix and statin. (5) Tobacco abuse: Code(s): Z72.0 - Tobacco use Status: Chronic Assessment and Plan: Nicotine patches as needed (6) Hypertension, essential: Code(s): I10 - Essential (primary) hypertension Status: Chronic Assessment and Plan: Continue home meds and adjust as needed. Plan CODE STATUS: Full code Disposition: from home. Diet: Heart healthy Antibiotic: day 1 Subjective Date/time seen: 12/02/22 16:24 Interval history: patient very eager to go home although he is still on some heavy duty steroids. Discussed with him that he needs home O2 eval and deceleration of steroids Before I feel comfortable with him being discharged. If still doing better will be okay with discharge tomorrow. patient still having shortness of breath with ambulation. Cough is improving. Denies chest pain, nausea, vomiting, fever, dizziness and lightheadedness. Review of Systems Review of Systems: All systems reviewed & are unremarkable except as noted in HPI and below Exam Narrative: GENERAL: Comfortable, no acute distress HENMT: moist mucous membranes EYES: EOM intact b/l NECK: no lymphadenopathy RESPIRATORY: Distant breath sounds CARDIO: RRR GI: soft, nontender, bowel sounds present SKIN: no rashes EXTREMITIES: no edema, redness or tenderness Objective Data Vital Signs Vital Signs: Vital Signs - 24 hr 12/01/22 20:00 12/01/22 20:07 12/01/22 20:07 Temperature Pulse Rate 96 102 H 95 Respiratory Rate 16 15 16 Blood Pressure Pulse Oximetry 96 Oxygen Delivery Nasal Cannula Oxygen Flow Rate 2 Fraction of Inspired Oxygen 28 12/01/22 20:00 12/01/22 22:00 12/01/22 20:00 Temperature 98.1 F Pulse Rate 104 H 97 Respiratory Rate 18 Blood Pressure 146/76 H Pulse Oximetry 97 91 Oxygen Delivery Nasal Cannula Oxygen Flow Rate 2 Fraction of Inspired Oxygen 12/02/22 00:21 12/02/22 00:31 12/02/22 00:00 Temperature Pulse Rate 88 89 98 Respiratory Rate 16 16 Blood Pressure Pulse Oximetry Oxygen Delivery Oxygen Flow Rate Fraction of Inspired Oxygen 12/02/22 04:00 12/02/22 06:00 12/02/22 08:25 Temperature 97.8 F Pulse Rate 82 67 95 Respiratory Ra
[2022-12-02] MEDS: MAGNESIUM OXIDE 400 MG TABLET PO (21:14)
[2022-12-02] MEDS: cefTRIAXone 2 GM/NS 100 ML 2 GM/100 ML BAG IVPB (21:23)
[2022-12-03] VITALS (18 sets, daily range): BP systolic 110–118; BP diastolic 61–68; PULSE 61–144; RESP 18–20; TEMP 36.2–36.4; O2SAT 87–98
[2022-12-03] MEDS: IPRATROPIUM BR 0.02% INH SOLN 0.5 MG/2.5 ML VIAL INHALATION ×4 (03:28→15:05)
[2022-12-03] MEDS: dilTIAZem HCL 60 MG TABLET BY MOUTH ×2 (05:31→14:17)
[2022-12-03 07:02] LABS: Basophils Percent Auto 0.1 % (0.2-1.2); Hematocrit 33.2 % (42.0-52.0); Hemoglobin 10.2 g/dL (14.0-18.0); Immature Granulocyte Absolute 0.11 K/mm3 (0.00-0.031); Immature Granulocyte Percent A 0.9 % (0-0.5); Lymphocytes Absolute Auto 0.72 K/mm3 (0.9-3.2); Lymphocytes Percent Auto 5.9 % (18.3-44.2); Mean Corpuscular HGB Conc 30.7 g/dl (32-36); Mean Corpuscular Hemoglobin 23.1 pg (26-34); Mean Corpuscular Volume 75.3 fl (80-100); Mean Platelet Volume 9.7 fl (7.4-10.4); Monocytes Absolute Auto 0.3 K/mm3 (0.1-0.6); Monocytes Percent Auto 2.4 % (2.6-8.5); Neutrophils Absolute Auto 11.1 K/mm3 (1.3-6.7); Neutrophils Percent Auto 90.7 % (45.5-73.1); Platelet Count Result 305 k/mm3 (150-375); Red Blood Count 4.41 M/mm3 (4.6-6.20); Red Cell Distribution Width 17.1 % (11.5-14.5); White Blood Count 12.3 K/mm3 (4.5-10.0)
[2022-12-03] MEDS: FLUTICASONE/UMECLIDIN/VILANTER 100-62.5-25 MCG ELLIPTA 1 PUFF INHALATION (07:05)
[2022-12-03 07:21] LABS: Alanine Aminotransferase 30 U/L (6-50); Albumin Level 3.9 g/dL (3.5-5.1); Alkaline Phosphatase 64 U/L (38-126); Anion Gap 6 mmol/L (8-16); Aspartate Amino Transferase 23 U/L (17-59); Bilirubin,Total 0.4 mg/dL (0.2-1.3); Blood Urea Nitrogen 16 mg/dL (9-20); Calcium 8.7 mg/dL (8.4-10.2); Carbon Dioxide 28 mmol/L (22-30); Chloride 103 mmol/L (98-107); Estimated CRCL calculation 73 ml/min; Estimated Glomerular Filt Rate > 60; Glucose 189 mg/dL (65-110); Potassium 4.7 mmol/L (3.4-5.0); Sodium 137 mmol/L (137-145)
[2022-12-03 07:59] LABS: Platelet Estimate Adequate (Adequate)
[2022-12-03 08:00] LABS: Burr Cells 1+ (NORMAL); Hypochromasia 1+ (NORMAL); Ovalocytes 1+ (NORMAL); Schistocytes None Seen (NORMAL); Tear Drop Cells 1+ (NORMAL)
[2022-12-03] MEDS: PANTOPRAZOLE 40 MG TABLET PO (08:28)
[2022-12-03] MEDS: ATORVASTATIN 40 MG TABLET PO (08:28)
[2022-12-03] MEDS: RIVAROXABAN 20 MG TABLET PO (08:28)
[2022-12-03] MEDS: guaiFENesin 12 HR 600 MG TABCR PO (08:28)
[2022-12-03] MEDS: CLOPIDOGREL BISULFATE 75 MG TABLET PO (08:28)
[2022-12-03] MEDS: methylPREDNISolone SOD SUCC 40 MG VIAL IV PUSH (08:29)
--- NOTE | 2022-12-03 08:57 | PM.DS ---
DS: Admitting Diagnosis Discharge Date 12/03/22 Admitting Diagnosis COPD exacerbation, pneumonia DS: Discharge Diagnosis Discharge Diagnosis (1) COPD exacerbation: Code(s): J44.1 - Chronic obstructive pulmonary disease with (acute) exacerbation Status: Acute Assessment and Plan: C/o SOB, increased sputum with color change and chills. Breathing treatments q.4 hours. Albuterol changed to xopenex Q4 hours due to h/o afib empiric antibiotics- Azithromcyin 500 mg IV Q24 hours and IV Rocephin 1 gram Q24 Mucinex 600 mg BID Solu-medrol 40 mg IV decelerated to q.12 hours Then decrease to 40 mg of prednisone daily Plan for home O2 evaluation today recommended 2 L with activity and 0-1 L at rest. Supportive care Resume trelegy At discharge. (2) Chronic respiratory failure with hypoxia: Code(s): J96.11 - Chronic respiratory failure with hypoxia Status: Chronic Assessment and Plan: Continue supplemental oxygen by nasal cannula Try and keep oxygen saturation at 94% Titrate O2 as needed. He reports wearing 2-3L with activity and sleep. He does not usually wear O2 at rest. (3) Paroxysmal atrial fibrillation: Code(s): I48.0 - Paroxysmal atrial fibrillation Status: Chronic Assessment and Plan: Chronic, continue diltiazem and anticoagulation (4) Coronary artery disease: Qualifiers: Associated angina: without angina Coronary Disease-Associated Artery/Lesion type: [place] artery [place] vs. transplanted heart: [place] heart Qualified Code(s): I25.10 - Atherosclerotic heart disease of [place] coronary artery without angina pectoris Code(s): I25.10 - Atherosclerotic heart disease of [place] coronary artery without angina pectoris Status: Chronic Assessment and Plan: Chest pain-free. h/o cardiac stents. Continue plavix and statin. (5) Tobacco abuse: Code(s): Z72.0 - Tobacco use Status: Chronic Assessment and Plan: Nicotine patches as needed (6) Hypertension, essential: Code(s): I10 - Essential (primary) hypertension Status: Chronic Assessment and Plan: Continue home meds and adjust as needed. DS: Summary Hospital Course Reason for hospitalization: pneumonia, COPD exacerbation Hospital Course: This is a 72 year old male with past medical history of COPD, AFib, coronary disease, tobacco dependence, hypertension and hyperlipidemia the presented to the emergency room due to having shortness of breath for the past 3 days. Patient also had chills, fevers, productive cough that was yellow and valencia in color. Patient wheezing on exam at admission. Patient usually on supplemental oxygen of 2-3 L at home with activity and night. patient did require increased oxygen demand upon arrival to the ED. flu, RSV and COVID negative and chest x-ray revealed emphysema and mild atelectasis at the lung bases. Patient started on DuoNebs, azithromycin and Rocephin, Mucinex, Solu-Medrol. Patient's steroids were tapered down as he improved. After 24 hours patient's oxygen demands lessened and patient resumed on home oxygen regimen. Patient's shortness of breath and lung sounds improved during his stay. Steroids decreased and he will continue both steroids and antibiotics for a total of 5 days as an outpatient. Patient's white blood cell count elevated most likely due to steroid use. Patient doing well on day of discharge and he is eager to be sent home. Patient did have home O2 evaluation to assess if patient would require increased oxygen at home. Respiratory therapy recommended 2 L with activity and 0-1 L at rest. Is recommended that patient continue prescriptions through completion and follow-up with primary care provider in 1-2 weeks. Time Spent with Patient Time attestation: Total time spent providing and/or coordinating discharge services: Exam Narrative: GENERAL: Comfort
--- NOTE | 2022-12-03 11:01 | PCCCNOTE ---
On 12/03/22, the student, [Tran Shah], provided care and completed [facility] documentation on this patient. I have reviewed the student's documentation and agree with the findings.
--- NOTE | 2022-12-03 15:54 | HOMEO2EVAL ---
Evaluation was performed at [facility] Home Oxygen Evaluation RC: Home Oxygen (O2) Evaluation Start: 12/03/22 15:50 Freq: Status: Active Protocol: RPE Activity Type Activity Date Activity User E-sign Co-sign Detail Recorded Client Recorded Date Recorded By Document 12/03/22 13:30 DJO [email or web address] 12/03/22 15:54 DJO Document 12/03/22 15:35 [email or web address] [email or web address] 12/03/22 15:54 DJO Document 12/03/22 15:40 [email or web address] [email or web address] 12/03/22 15:54 DJO Document 12/03/22 15:50 [email or web address] [email or web address] 12/03/22 15:54 DJO 12/03/22 12/03/22 12/03/22 13:30 15:35 15:40 Home O2 Evaluation [Oxygen] -Test Phase Resting Exercise Exercise -Oxygen Delivery Room Air Room Air Nasal Cannula -Oxygen Flow Rate (L/min) 2 [Pulse Oximetry] -Pulse Oximetry (90-100 %) 93 87 L 91 [Pulse Rate] -Pulse Rate (60-100 beats/min) 102 H 132 H 144 H [Evaluation] -Activity Tolerance Good [Exercise] -Ambulation Distance (feet) 300 -Ambulation Distance (meters) 91.43 [Charges] -Treatment Charges O2 Evaluation - Inpatient 12/03/22 15:50 Home O2 Evaluation [Oxygen] -Test Phase Resting -Oxygen Delivery Room Air -Oxygen Flow Rate (L/min) [Pulse Oximetry] -Pulse Oximetry (90-100 %) 93 [Pulse Rate] -Pulse Rate (60-100 beats/min) 124 H [Evaluation] -Activity Tolerance [Exercise] -Ambulation Distance (feet) -Ambulation Distance (meters) [Charges] -Treatment Charges
--- NOTE | 2022-12-03 15:55 | PCRCNOTE ---
HOME O2 EVAL COMPLETE, 2L WITH ACTIVITY, NO CHANGES IN HOME SETTINGS. PT HAS TANK FOR DISCHARGE.
== END 2022-12-03 17:38 | disposition home or self-care (01) | DRG 191 ==
LOC: ANHED 19:45 → ANH3MEDSUR 23:01
PROVIDERS: Emergency Medicine; Nurse Practitioner Family; Admitting Provider Internal Medicine; Emergency Provider Emergency Medicine; PCP Family Medicine Adolescent Medicine; Visit Provider Internal Medicine Critical Care Medicine
DX: J44.1 Chronic obstructive pulmonary disease with (acute) exacerbation (principal); I48.20 Chronic atrial fibrillation, unspecified; J96.11 Chronic respiratory failure with hypoxia; I25.10 Atherosclerotic heart disease of native coronary artery without angina pectoris; I10 Essential (primary) hypertension; E78.5 Hyperlipidemia, unspecified; Z20.822 Contact with and (suspected) exposure to COVID-19; Z95.5 Presence of coronary angioplasty implant and graft; Z99.81 Dependence on supplemental oxygen; Z79.01 Long term (current) use of anticoagulants; I25.2 Old myocardial infarction; Z87.891 Personal history of nicotine dependence
CPT/HCPCS: 36415; 71046; 80048; 80053; 83690; 83880; 84145; 84484; 85025; 85027; 85610; 85730; 86140; 87637; 93005; 94618; 94640; 94667; 96365; 96375; 99285; A9270; J0456; J0696; J2920; J2930

== ENCOUNTER 2024-01-31 13:09 | Outpatient (CLI) | payer MEDICARE, SELFPAY ==
--- NOTE | ~2024-01-31 | XR_ITS ---
Clinical Indication: Cough PA and lateral views of the chest: Comparison: 11/30/2022 Findings: The lungs are clear, without evidence of focal consolidation or pleural effusion. Cardiome diastinal silhouette is within normal limits. Bones and soft tissues are unremarkable. Impression: Normal chest. Reviewed, dictated and finalized at location . Impression: Normal chest.
== END 2024-01-31 13:10 ==
LOC: MICIMG 13:11
PROVIDERS: PCP Family Medicine Adolescent Medicine; Visit Provider Family Medicine Adolescent Medicine
DX: R05.9 Cough, unspecified (principal)
CPT/HCPCS: 71046